=== PATIENT | female | born 1975 | race Two or more races ===

== ENCOUNTER 2025-07-24 22:40 | Emergency (ER) | payer MEDICAID, OTHER ==
[~2025-07-24] VITALS: Ht 165.1 cm; Wt 51.7 kg
[2025-07-24] MEDS ORDERED: MECLIZINE HCL 25 MG TABLET ONE (23:10)
[2025-07-24] MEDS ORDERED: FAMOTIDINE/PF INJ 20 MG/2 ML VIAL IV ONE (23:10)
[2025-07-24] MEDS ORDERED: ONDANSETRON HCL/PF 4 MG/2 ML VIAL ONE (23:10)
[2025-07-24] MEDS: ONDANSETRON HCL/PF 4 MG/2 ML VIAL IVP ONE (23:24)
[2025-07-24] MEDS: MECLIZINE HCL 25 MG TABLET PO ONE (23:24)
[2025-07-24] MEDS: IV NS 0.9% 1,000 ML BAG IV ONE (23:24)
[2025-07-24] MEDS: FAMOTIDINE/PF INJ 20 MG/2 ML VIAL IV ONE (23:24)
[2025-07-24 23:31] LABS: PLATELET COUNT (AUTO) 213 K/uL (150-450); RED BLOOD CELL COUNT(AUTO) 4.22 MIL/uL (4.0-5.2); RED CELL DISTRIBUTION WIDTH 13.4 % (11.5-15.0); WHITE BLOOD COUNT (AUTO) 6.1 K/uL (4.3-11.0)
[2025-07-24 23:43] LABS: CALCIUM, SERUM 8.6 mg/dL (8.5-10.1); CREATININE 0.7 mg/dL (0.6-1.3); SODIUM SERUM 140 mmol/L (136-145); UREA NITROGEN, BLOOD 9 mg/dL (7-18)
[2025-07-24 23:50] LABS: ASPARTATE AMINOTRANSFERASE 16 U/L (15-37); TOTAL PROTEIN, SERUM 6.4 g/dL (6.4-8.2)
[2025-07-25] MEDS ORDERED: MECL-159 PO (00:30)
[2025-07-25 01:28] VITALS: BP 145/89; TEMP 98.1; O2SAT 96
== END 2025-07-25 01:28 | disposition home or self-care (01) ==
LOC: ER 22:43 → EDBD 22:43 → ER 07-25 01:28
DX: R42 Dizziness and giddiness (principal); I10 Essential (primary) hypertension
CPT/HCPCS: 99285; 96374; 70450; 71045; 96361; 96375; 93005; 85025; 80048; 83690; 80076; 36415; 84484; 82962; 84702; J8597; J1308; J2405